=== PATIENT | female | born 1950 | race Caucasian/White ===

== ENCOUNTER 2019-05-24 00:53 | Outpatient (RCR) | payer MEDICARE, SELFPAY ==
[2019-05-10] MEDS: Normal Saline Flush 10 ML SYR IVP (08:51)
[2019-05-10 09:07] LABS: Abs Immature Grans 0.01 k/cumm (0.0-0.09); Absolute Basophil Count 0.04 k/cumm (0.0-0.2); Absolute Eosinophil Count 0.09 k/cumm (0.0-0.7); Absolute Lymphocyte Count 2.15 k/cumm (1.2-3.4); Absolute Monocyte Count 0.52 k/cumm (0.11-0.7); Basophils % 0.6; Eosinophils % 1.4; HCT 40.1 % (36.0-46.0); Immature Grans % 0.2; Lymphocytes % 34.6; Mean Corp. HGB Concentration 32.4 g/dL (32.0-36.0); Mean Corpuscular Hemoglobin 30.7 pg (27.0-33.0); Mean Corpuscular Volume 94.6 fL (80-95); Mean Platelet Volume 9.5 fL (8.0-11.0); Monocytes % 8.4; Neutrophils % 54.8; Platelet Count 305 x1000/uL (130-400); RBC 4.24 m/cumm (4.00-5.20); RBC Distribution Width 12.6 % (11.7-14.6); White Blood Cell Count 6.21 k/cumm (4.4-10.8)
[2019-05-10 09:21] LABS: ALT 23 U/L (12-78); AST 14 U/L (15-37); Albumin 4.3 g/dL (3.4-5.0); Alkaline Phosphatase 73 U/L (46-116); Anion Gap 10.4 mmol/L (3-11); BUN 11 mg/dL (7-18); Bilirubin, Total 0.5 mg/dL (0.2-1.0); CO2 24.6 mmol/L (21.0-32.0); CREATININE 0.72 mg/dL (0.55-1.02); Calcium 9.2 mg/dL (8.5-10.1); Chloride 105 mmol/L (98-107); Glucose 106 mg/dL (70-100); Sodium 140 mmol/L (136-145); Total Protein 7.7 g/dL (6.4-8.2)
[2019-05-24] MEDS: Normal Saline Flush 10 ML SYR IVP (09:56)
[2019-05-24 10:07] LABS: Abs Immature Grans 0.66 k/cumm (0.0-0.09); HCT 36.4 % (36.0-46.0); HGB 11.6 g/dL (12.0-15.5); Mean Corp. HGB Concentration 31.9 g/dL (32.0-36.0); Mean Corpuscular Hemoglobin 30.5 pg (27.0-33.0); Mean Corpuscular Volume 95.8 fL (80-95); Mean Platelet Volume 9.4 fL (8.0-11.0); Platelet Count 291 x1000/uL (130-400); RBC Distribution Width 12.9 % (11.7-14.6); White Blood Cell Count 16.08 k/cumm (4.4-10.8)
[2019-05-24 10:25] LABS: Absolute Basophil Count 0.16 k/cumm (0.0-0.2); Absolute Lymphocyte Count 1.61 k/cumm (1.2-3.4); Absolute Monocyte Count 1.13 k/cumm (0.11-0.7); Absolute Neutrophil Count 12.54 k/cumm (1.2-6.7); Diff Comment Manual Differential; Polychromasia Present
[2019-05-24 10:31] LABS: ALT 26 U/L (14-59); AST 15 U/L (15-37); Albumin 3.7 g/dL (3.4-5.0); Alkaline Phosphatase 111 U/L (46-116); Anion Gap 12.9 mmol/L (3-11); BUN 8 mg/dL (7-18); Bilirubin, Total 0.2 mg/dL (0.2-1.0); CO2 24.1 mmol/L (21.0-32.0); CREATININE 0.64 mg/dL (0.55-1.02); Calcium 8.9 mg/dL (8.5-10.1); Chloride 105 mmol/L (98-107); Glucose 137 mg/dL (70-100); Potassium 3.9 mmol/L (3.5-5.1); Sodium 142 mmol/L (136-145); Total Protein 7.2 g/dL (6.4-8.2)
== END 2019-05-26 23:59 | disposition home or self-care (01) ==
LOC: INF 00:53
PROVIDERS: PCP Family Medicine; Visit Provider Internal Medicine Hematology & Oncology
DX: C50.912 Malignant neoplasm of unspecified site of left female breast (principal); Z17.0 Estrogen receptor positive status [ER+]; Z45.2 Encounter for adjustment and management of vascular access device
CPT/HCPCS: 36591; 80053; 85025

== ENCOUNTER 2019-06-21 02:07 | Outpatient (RCR) | payer MEDICARE, SELFPAY ==
[2019-06-07] MEDS: Normal Saline Flush 10 ML SYR IVP (09:54)
[2019-06-07 10:04] LABS: HCT 33.4 % (36.0-46.0); HGB 10.6 g/dL (12.0-15.5); Mean Corp. HGB Concentration 31.7 g/dL (32.0-36.0); Mean Corpuscular Hemoglobin 30.1 pg (27.0-33.0); Mean Corpuscular Volume 94.9 fL (80-95); Mean Platelet Volume 8.8 fL (8.0-11.0); Platelet Count 260 x1000/uL (130-400); RBC 3.52 m/cumm (4.00-5.20); White Blood Cell Count 17.16 k/cumm (4.4-10.8)
[2019-06-07 10:14] LABS: ALT 26 U/L (14-59); AST 14 U/L (15-37); Albumin 3.8 g/dL (3.4-5.0); Alkaline Phosphatase 121 U/L (46-116); Anion Gap 10.4 mmol/L (3-11); BUN 7 mg/dL (7-18); Bilirubin, Total 0.2 mg/dL (0.2-1.0); CO2 24.6 mmol/L (21.0-32.0); CREATININE 0.67 mg/dL (0.55-1.02); Calcium 8.4 mg/dL (8.5-10.1); Chloride 107 mmol/L (98-107); Glucose 107 mg/dL (70-100); Potassium 4.1 mmol/L (3.5-5.1); Sodium 142 mmol/L (136-145); Total Protein 6.8 g/dL (6.4-8.2)
[2019-06-07 10:24] LABS: Absolute Lymphocyte Count 1.03 k/cumm (1.2-3.4); Absolute Monocyte Count 0.69 k/cumm (0.11-0.7); Absolute Neutrophil Count 15.27 k/cumm (1.2-6.7); Diff Comment Manual Differential; RBC Morphology Normal
[2019-06-21] MEDS: Normal Saline Flush 10 ML SYR IVP (10:05)
[2019-06-21 10:06] LABS: Abs Immature Grans 0.33 k/cumm (0.0-0.09); HCT 27.9 % (36.0-46.0); HGB 9.1 g/dL (12.0-15.5); Mean Corp. HGB Concentration 32.6 g/dL (32.0-36.0); Mean Corpuscular Hemoglobin 30.7 pg (27.0-33.0); Mean Corpuscular Volume 94.3 fL (80-95); Mean Platelet Volume 8.9 fL (8.0-11.0); Platelet Count 274 x1000/uL (130-400); RBC 2.96 m/cumm (4.00-5.20); White Blood Cell Count 12.21 k/cumm (4.4-10.8)
[2019-06-21 10:22] LABS: ALT 19 U/L (14-59); AST 11 U/L (15-37); Albumin 3.5 g/dL (3.4-5.0); Alkaline Phosphatase 101 U/L (46-116); Anion Gap 9.8 mmol/L (3-11); BUN 8 mg/dL (7-18); Bilirubin, Total 0.2 mg/dL (0.2-1.0); CO2 24.2 mmol/L (21.0-32.0); CREATININE 0.62 mg/dL (0.55-1.02); Calcium 8.6 mg/dL (8.5-10.1); Chloride 107 mmol/L (98-107); Glucose 124 mg/dL (70-100); Potassium 3.7 mmol/L (3.5-5.1); Sodium 141 mmol/L (136-145); Total Protein 6.5 g/dL (6.4-8.2)
[2019-06-21 10:36] LABS: Absolute Lymphocyte Count 0.49 k/cumm (1.2-3.4); Absolute Monocyte Count 0.73 k/cumm (0.11-0.7); Absolute Neutrophil Count 10.99 k/cumm (1.2-6.7); Anisocytosis 1+; Diff Comment RBC Morph Reviewed; Polychromasia Present
== END 2019-06-25 23:59 | disposition home or self-care (01) ==
LOC: INF 02:07
PROVIDERS: PCP Family Medicine; Visit Provider Internal Medicine Hematology & Oncology
DX: C50.912 Malignant neoplasm of unspecified site of left female breast (principal); Z17.0 Estrogen receptor positive status [ER+]; Z45.2 Encounter for adjustment and management of vascular access device
CPT/HCPCS: 36591; 80053; 85025

== ENCOUNTER 2019-07-19 01:15 | Outpatient (RCR) | payer MEDICARE, SELFPAY ==
[2019-07-19 08:58] LABS: Abs Immature Grans 0.04 k/cumm (0.0-0.09); Absolute Basophil Count 0.12 k/cumm (0.0-0.2); Absolute Eosinophil Count 0.16 k/cumm (0.0-0.7); Absolute Lymphocyte Count 0.58 k/cumm (1.2-3.4); Absolute Monocyte Count 0.52 k/cumm (0.11-0.7); Absolute Neutrophil Count 3.61 k/cumm (1.2-6.7); Basophils % 2.4; Eosinophils % 3.2; HCT 27.3 % (36.0-46.0); HGB 8.6 g/dL (12.0-15.5); Immature Grans % 0.8; Lymphocytes % 11.5; Mean Corp. HGB Concentration 31.5 g/dL (32.0-36.0); Mean Corpuscular Hemoglobin 30.7 pg (27.0-33.0); Mean Corpuscular Volume 97.5 fL (80-95); Mean Platelet Volume 8.6 fL (8.0-11.0); Monocytes % 10.3; Neutrophils % 71.8; Platelet Count 337 x1000/uL (130-400); RBC Distribution Width 18.1 % (11.7-14.6); White Blood Cell Count 5.03 k/cumm (4.4-10.8)
[2019-07-19 09:07] LABS: ALT 30 U/L (14-59); AST 16 U/L (15-37); Albumin 3.8 g/dL (3.4-5.0); Alkaline Phosphatase 72 U/L (46-116); Anion Gap 12.2 mmol/L (3-11); BUN 10 mg/dL (7-18); Bilirubin, Total 0.4 mg/dL (0.2-1.0); CO2 22.8 mmol/L (21.0-32.0); CREATININE 0.67 mg/dL (0.55-1.02); Calcium 9.1 mg/dL (8.5-10.1); Chloride 106 mmol/L (98-107); Glucose 126 mg/dL (70-100); Potassium 3.6 mmol/L (3.5-5.1); Sodium 141 mmol/L (136-145)
[2019-07-19] MEDS: Normal Saline Flush 10 ML SYR IVP (09:08)
== END 2019-07-26 23:59 | disposition home or self-care (01) ==
LOC: INF 01:15
PROVIDERS: PCP Family Medicine; Visit Provider Internal Medicine Hematology & Oncology
DX: C50.912 Malignant neoplasm of unspecified site of left female breast (principal); Z17.0 Estrogen receptor positive status [ER+]; Z45.2 Encounter for adjustment and management of vascular access device
CPT/HCPCS: 36591; 80053; 85025

== ENCOUNTER 2019-07-26 01:54 | Outpatient (RCR) | payer MEDICARE, SELFPAY ==
[2019-07-05] MEDS: Normal Saline Flush 10 ML SYR IVP (10:22)
[2019-07-05 10:40] LABS: Abs Immature Grans 0.45 k/cumm (0.0-0.09); HCT 25.3 % (36.0-46.0); HGB 7.9 g/dL (12.0-15.5); Mean Corp. HGB Concentration 31.2 g/dL (32.0-36.0); Mean Corpuscular Volume 96.2 fL (80-95); Mean Platelet Volume 8.7 fL (8.0-11.0); Platelet Count 292 x1000/uL (130-400); RBC 2.63 m/cumm (4.00-5.20); RBC Distribution Width 16.1 % (11.7-14.6); White Blood Cell Count 18.22 k/cumm (4.4-10.8)
[2019-07-05 10:47] LABS: ALT 14 U/L (14-59); AST 13 U/L (15-37); Albumin 3.5 g/dL (3.4-5.0); Alkaline Phosphatase 124 U/L (46-116); Anion Gap 10.5 mmol/L (3-11); BUN 7 mg/dL (7-18); Bilirubin, Total 0.2 mg/dL (0.2-1.0); CO2 24.5 mmol/L (21.0-32.0); CREATININE 0.61 mg/dL (0.55-1.02); Calcium 8.6 mg/dL (8.5-10.1); Chloride 108 mmol/L (98-107); Glucose 107 mg/dL (70-100); Potassium 3.8 mmol/L (3.5-5.1); Sodium 143 mmol/L (136-145); Total Protein 6.5 g/dL (6.4-8.2)
[2019-07-05 10:58] LABS: Absolute Lymphocyte Count 1.46 k/cumm (1.2-3.4); Absolute Monocyte Count 1.82 k/cumm (0.11-0.7); Absolute Neutrophil Count 14.58 k/cumm (1.2-6.7); Atypical Lymphocytes % 1
[2019-07-05 10:59] LABS: Anisocytosis 2+; Diff Comment Manual Differential
[2019-07-12] MEDS: Normal Saline Flush 10 ML SYR IVP (09:14)
[2019-07-12 09:32] LABS: Abs Immature Grans 0.04 k/cumm (0.0-0.09); Absolute Basophil Count 0.06 k/cumm (0.0-0.2); Absolute Eosinophil Count 0.01 k/cumm (0.0-0.7); Absolute Monocyte Count 0.68 k/cumm (0.11-0.7); Basophils % 1.1; Eosinophils % 0.2; HCT 26.8 % (36.0-46.0); HGB 8.5 g/dL (12.0-15.5); Immature Grans % 0.7; Lymphocytes % 10.9; Mean Corp. HGB Concentration 31.7 g/dL (32.0-36.0); Mean Corpuscular Volume 94.7 fL (80-95); Mean Platelet Volume 8.6 fL (8.0-11.0); Monocytes % 12.4; Neutrophils % 74.7; Platelet Count 413 x1000/uL (130-400); RBC 2.83 m/cumm (4.00-5.20); RBC Distribution Width 16.8 % (11.7-14.6); White Blood Cell Count 5.49 k/cumm (4.4-10.8)
[2019-07-12 09:42] LABS: ALT 22 U/L (14-59); AST 16 U/L (15-37); Albumin 3.8 g/dL (3.4-5.0); Alkaline Phosphatase 82 U/L (46-116); Anion Gap 12.1 mmol/L (3-11); BUN 9 mg/dL (7-18); Bilirubin, Total 0.4 mg/dL (0.2-1.0); CO2 22.9 mmol/L (21.0-32.0); CREATININE 0.73 mg/dL (0.55-1.02); Calcium 9.1 mg/dL (8.5-10.1); Chloride 107 mmol/L (98-107); Glucose 140 mg/dL (70-100); Potassium 3.5 mmol/L (3.5-5.1); Sodium 142 mmol/L (136-145); Total Protein 7.1 g/dL (6.4-8.2)
[2019-07-26] MEDS: Normal Saline Flush 10 ML SYR IVP (08:52)
[2019-07-26 09:14] LABS: ALT 29 U/L (14-59); AST 16 U/L (15-37); Albumin 3.6 g/dL (3.4-5.0); Alkaline Phosphatase 64 U/L (46-116); BUN 8 mg/dL (7-18); Bilirubin, Total 0.4 mg/dL (0.2-1.0); CREATININE 0.67 mg/dL (0.55-1.02); Calcium 9.1 mg/dL (8.5-10.1); Chloride 107 mmol/L (98-107); Glucose 110 mg/dL (70-100); Sodium 141 mmol/L (136-145); Total Protein 6.8 g/dL (6.4-8.2)
[2019-07-26 09:16] LABS: Abs Immature Grans 0.05 k/cumm (0.0-0.09); Absolute Basophil Count 0.06 k/cumm (0.0-0.2); Absolute Eosinophil Count 0.29 k/cumm (0.0-0.7); Absolute Lymphocyte Count 0.68 k/cumm (1.2-3.4); Absolute Monocyte Count 0.49 k/cumm (0.11-0.7); Absolute Neutrophil Count 3.45 k/cumm (1.2-6.7); Basophils % 1.2; Eosinophils % 5.8; HCT 28.5 % (36.0-46.0); Lymphocytes % 13.5; Mean Corp. HGB Concentration 31.6 g/dL (32.0-36.0); Mean Corpuscular Hemoglobin 31.6 pg (27.0-33.0); Mean Platelet Volume 8.6 fL (8.0-11.0); Monocytes % 9.8; Neutrophils % 68.7; Platelet Count 377 x1000/uL (130-400); RBC 2.85 m/cumm (4.00-5.20); RBC Distribution Width 18.6 % (11.7-14.6); White Blood Cell Count 5.02 k/cumm (4.4-10.8)
== END 2019-07-26 23:59 | disposition home or self-care (01) ==
LOC: INF 01:54
PROVIDERS: PCP Family Medicine; Visit Provider Internal Medicine Hematology & Oncology
DX: C50.912 Malignant neoplasm of unspecified site of left female breast (principal); Z17.0 Estrogen receptor positive status [ER+]; Z45.2 Encounter for adjustment and management of vascular access device
CPT/HCPCS: 36591; 80053; 86900; 86901; 85025

== ENCOUNTER 2019-08-24 02:03 | Outpatient (RCR) | payer MEDICARE, SELFPAY ==
[2019-08-02 10:03] LABS: Abs Immature Grans 0.03 k/cumm (0.0-0.09); Absolute Basophil Count 0.08 k/cumm (0.0-0.2); Absolute Eosinophil Count 0.17 k/cumm (0.0-0.7); Absolute Lymphocyte Count 0.66 k/cumm (1.2-3.4); Absolute Monocyte Count 0.45 k/cumm (0.11-0.7); Absolute Neutrophil Count 4.48 k/cumm (1.2-6.7); Basophils % 1.4; Eosinophils % 2.9; HCT 28.1 % (36.0-46.0); HGB 8.9 g/dL (12.0-15.5); Immature Grans % 0.5; Lymphocytes % 11.2; Mean Corp. HGB Concentration 31.7 g/dL (32.0-36.0); Mean Corpuscular Volume 101.1 fL (80-95); Mean Platelet Volume 8.3 fL (8.0-11.0); Monocytes % 7.7; Neutrophils % 76.3; Platelet Count 322 x1000/uL (130-400); RBC 2.78 m/cumm (4.00-5.20); RBC Distribution Width 17.1 % (11.7-14.6); White Blood Cell Count 5.87 k/cumm (4.4-10.8)
[2019-08-02 10:18] LABS: ALT 32 U/L (14-59); AST 19 U/L (15-37); Albumin 3.8 g/dL (3.4-5.0); Alkaline Phosphatase 72 U/L (46-116); Anion Gap 10.6 mmol/L (3-11); BUN 14 mg/dL (7-18); Bilirubin, Total 0.3 mg/dL (0.2-1.0); CO2 24.4 mmol/L (21.0-32.0); CREATININE 0.69 mg/dL (0.55-1.02); Calcium 8.8 mg/dL (8.5-10.1); Chloride 107 mmol/L (98-107); Glucose 123 mg/dL (70-100); Potassium 3.6 mmol/L (3.5-5.1); Sodium 142 mmol/L (136-145)
[2019-08-02] MEDS: Normal Saline Flush 10 ML SYR IVP (11:06)
[2019-08-09 09:18] LABS: Abs Immature Grans 0.03 k/cumm (0.0-0.09); Absolute Basophil Count 0.06 k/cumm (0.0-0.2); Absolute Eosinophil Count 0.12 k/cumm (0.0-0.7); Absolute Lymphocyte Count 0.76 k/cumm (1.2-3.4); Absolute Monocyte Count 0.31 k/cumm (0.11-0.7); Absolute Neutrophil Count 2.61 k/cumm (1.2-6.7); Basophils % 1.5; Eosinophils % 3.1; HCT 29.2 % (36.0-46.0); Immature Grans % 0.8; Lymphocytes % 19.5; Mean Corp. HGB Concentration 30.8 g/dL (32.0-36.0); Mean Corpuscular Hemoglobin 31.5 pg (27.0-33.0); Mean Corpuscular Volume 102.1 fL (80-95); Mean Platelet Volume 8.7 fL (8.0-11.0); Neutrophils % 67.1; Platelet Count 322 x1000/uL (130-400); RBC 2.86 m/cumm (4.00-5.20); RBC Distribution Width 16.4 % (11.7-14.6); White Blood Cell Count 3.89 k/cumm (4.4-10.8)
[2019-08-09 09:35] LABS: ALT 26 U/L (14-59); AST 18 U/L (15-37); Albumin 3.9 g/dL (3.4-5.0); Alkaline Phosphatase 64 U/L (46-116); Anion Gap 10.7 mmol/L (3-11); BUN 10 mg/dL (7-18); Bilirubin, Total 0.4 mg/dL (0.2-1.0); CO2 24.3 mmol/L (21.0-32.0); CREATININE 0.62 mg/dL (0.55-1.02); Calcium 9.1 mg/dL (8.5-10.1); Chloride 106 mmol/L (98-107); Glucose 101 mg/dL (70-100); Potassium 3.9 mmol/L (3.5-5.1); Sodium 141 mmol/L (136-145); Total Protein 6.9 g/dL (6.4-8.2)
[2019-08-09] MEDS: Normal Saline Flush 10 ML SYR IVP (09:39)
[2019-08-09 09:48] LABS: Anisocytosis 1+; Diff Comment RBC Morph Reviewed; Hypochromasia 1+; Macrocytosis 1+; Microcytosis 1+; Poikilocytes 1+; Polychromasia Present
[2019-08-16] MEDS: Normal Saline Flush 10 ML SYR IVP (09:18)
[2019-08-16 09:23] LABS: Abs Immature Grans 0.03 k/cumm (0.0-0.09); Absolute Basophil Count 0.04 k/cumm (0.0-0.2); Absolute Lymphocyte Count 0.69 k/cumm (1.2-3.4); Absolute Monocyte Count 0.34 k/cumm (0.11-0.7); Basophils % 1.1; Eosinophils % 2.6; HCT 31.7 % (36.0-46.0); Immature Grans % 0.8; Lymphocytes % 18.2; Mean Corp. HGB Concentration 31.5 g/dL (32.0-36.0); Mean Corpuscular Hemoglobin 32.4 pg (27.0-33.0); Mean Corpuscular Volume 102.6 fL (80-95); Mean Platelet Volume 8.5 fL (8.0-11.0); Monocytes % 8.9; Neutrophils % 68.4; Platelet Count 346 x1000/uL (130-400); RBC 3.09 m/cumm (4.00-5.20); RBC Distribution Width 15.8 % (11.7-14.6)
[2019-08-16 09:42] LABS: ALT 25 U/L (14-59); AST 12 U/L (15-37); Albumin 3.6 g/dL (3.4-5.0); Alkaline Phosphatase 58 U/L (46-116); Anion Gap 8.7 mmol/L (3-11); BUN 11 mg/dL (7-18); Bilirubin, Total 0.4 mg/dL (0.2-1.0); CO2 25.3 mmol/L (21.0-32.0); CREATININE 0.63 mg/dL (0.55-1.02); Calcium 9.1 mg/dL (8.5-10.1); Chloride 105 mmol/L (98-107); Glucose 104 mg/dL (74-106); Potassium 3.9 mmol/L (3.5-5.1); Sodium 139 mmol/L (136-145); Total Protein 6.6 g/dL (6.4-8.2)
[2019-08-24 09:33] LABS: Abs Immature Grans 0.01 k/cumm (0.0-0.09); Absolute Basophil Count 0.06 k/cumm (0.0-0.2); Absolute Eosinophil Count 0.08 k/cumm (0.0-0.7); Absolute Lymphocyte Count 0.78 k/cumm (1.2-3.4); Absolute Monocyte Count 0.56 k/cumm (0.11-0.7); Absolute Neutrophil Count 2.78 k/cumm (1.2-6.7); Basophils % 1.4; Eosinophils % 1.9; HCT 29.4 % (36.0-46.0); HGB 9.1 g/dL (12.0-15.5); Immature Grans % 0.2; Lymphocytes % 18.3; Mean Corpuscular Hemoglobin 32.3 pg (27.0-33.0); Mean Corpuscular Volume 104.3 fL (80-95); Mean Platelet Volume 8.8 fL (8.0-11.0); Monocytes % 13.1; Neutrophils % 65.1; Platelet Count 298 x1000/uL (130-400); RBC 2.82 m/cumm (4.00-5.20); RBC Distribution Width 14.8 % (11.7-14.6); White Blood Cell Count 4.27 k/cumm (4.4-10.8)
[2019-08-24 10:03] LABS: ALT 26 U/L (14-59); AST 17 U/L (15-37); Albumin 3.9 g/dL (3.4-5.0); Alkaline Phosphatase 64 U/L (46-116); Anion Gap 11.1 mmol/L (3-11); BUN 10 mg/dL (7-18); Bilirubin, Total 0.4 mg/dL (0.2-1.0); CO2 23.9 mmol/L (21.0-32.0); CREATININE 0.68 mg/dL (0.55-1.02); Calcium 8.8 mg/dL (8.5-10.1); Chloride 106 mmol/L (98-107); Glucose 99 mg/dL (74-106); Potassium 3.8 mmol/L (3.5-5.1); Sodium 141 mmol/L (136-145); Total Protein 6.8 g/dL (6.4-8.2)
[2019-08-24] MEDS: Normal Saline Flush 10 ML SYR IVP (11:40)
== END 2019-08-25 23:59 | disposition home or self-care (01) ==
LOC: INF 02:03
PROVIDERS: PCP Family Medicine; Visit Provider Internal Medicine Hematology & Oncology
DX: C50.912 Malignant neoplasm of unspecified site of left female breast (principal); Z17.0 Estrogen receptor positive status [ER+]; Z45.2 Encounter for adjustment and management of vascular access device
CPT/HCPCS: 36591; 80053; 85025

== ENCOUNTER 2019-09-20 00:40 | Outpatient (RCR) | payer MEDICARE, SELFPAY ==
[2019-08-30] MEDS: Normal Saline Flush 10 ML SYR IVP (09:25)
[2019-08-30 09:45] LABS: Abs Immature Grans 0.03 k/cumm (0.0-0.09); Absolute Basophil Count 0.04 k/cumm (0.0-0.2); Absolute Eosinophil Count 0.06 k/cumm (0.0-0.7); Absolute Lymphocyte Count 0.79 k/cumm (1.2-3.4); Absolute Monocyte Count 0.26 k/cumm (0.11-0.7); Absolute Neutrophil Count 3.45 k/cumm (1.2-6.7); Basophils % 0.9; Eosinophils % 1.3; HCT 34.5 % (36.0-46.0); HGB 10.9 g/dL (12.0-15.5); Immature Grans % 0.6; Lymphocytes % 17.1; Mean Corp. HGB Concentration 31.6 g/dL (32.0-36.0); Mean Corpuscular Hemoglobin 32.6 pg (27.0-33.0); Mean Corpuscular Volume 103.3 fL (80-95); Mean Platelet Volume 8.8 fL (8.0-11.0); Monocytes % 5.6; Neutrophils % 74.5; Platelet Count 335 x1000/uL (130-400); RBC 3.34 m/cumm (4.00-5.20); RBC Distribution Width 14.1 % (11.7-14.6); White Blood Cell Count 4.63 k/cumm (4.4-10.8)
[2019-08-30 10:01] LABS: ALT 22 U/L (14-59); AST 13 U/L (15-37); Albumin 3.9 g/dL (3.4-5.0); Alkaline Phosphatase 66 U/L (46-116); BUN 11 mg/dL (7-18); Bilirubin, Total 0.3 mg/dL (0.2-1.0); CREATININE 0.66 mg/dL (0.55-1.02); Calcium 9.3 mg/dL (8.5-10.1); Chloride 106 mmol/L (98-107); Glucose 122 mg/dL (74-106); Sodium 140 mmol/L (136-145); Total Protein 7.1 g/dL (6.4-8.2)
[2019-09-06] MEDS: Normal Saline Flush 10 ML SYR IVP (08:50)
[2019-09-06 09:15] LABS: Abs Immature Grans 0.02 k/cumm (0.0-0.09); Absolute Basophil Count 0.06 k/cumm (0.0-0.2); Absolute Eosinophil Count 0.08 k/cumm (0.0-0.7); Absolute Lymphocyte Count 1.14 k/cumm (1.2-3.4); Absolute Monocyte Count 0.42 k/cumm (0.11-0.7); Absolute Neutrophil Count 2.44 k/cumm (1.2-6.7); Basophils % 1.4; Eosinophils % 1.9; HCT 32.5 % (36.0-46.0); Immature Grans % 0.5; Lymphocytes % 27.4; Mean Corp. HGB Concentration 30.8 g/dL (32.0-36.0); Mean Corpuscular Hemoglobin 31.7 pg (27.0-33.0); Mean Corpuscular Volume 103.2 fL (80-95); Mean Platelet Volume 8.6 fL (8.0-11.0); Monocytes % 10.1; Neutrophils % 58.7; Platelet Count 357 x1000/uL (130-400); RBC 3.15 m/cumm (4.00-5.20); RBC Distribution Width 14.3 % (11.7-14.6); White Blood Cell Count 4.16 k/cumm (4.4-10.8)
[2019-09-06 09:50] LABS: ALT 27 U/L (14-59); AST 16 U/L (15-37); Albumin 3.8 g/dL (3.4-5.0); Alkaline Phosphatase 54 U/L (46-116); Anion Gap 10.8 mmol/L (3-11); BUN 12 mg/dL (7-18); Bilirubin, Total 0.3 mg/dL (0.2-1.0); CO2 24.2 mmol/L (21.0-32.0); CREATININE 0.71 mg/dL (0.55-1.02); Calcium 8.9 mg/dL (8.5-10.1); Chloride 106 mmol/L (98-107); Glucose 110 mg/dL (74-106); Potassium 3.6 mmol/L (3.5-5.1); Sodium 141 mmol/L (136-145); Total Protein 6.7 g/dL (6.4-8.2)
[2019-09-13 09:43] LABS: Abs Immature Grans 0.04 k/cumm (0.0-0.09); Absolute Basophil Count 0.05 k/cumm (0.0-0.2); Absolute Eosinophil Count 0.04 k/cumm (0.0-0.7); Absolute Lymphocyte Count 0.82 k/cumm (1.2-3.4); Absolute Neutrophil Count 3.43 k/cumm (1.2-6.7); Eosinophils % 0.8; HCT 34.1 % (36.0-46.0); HGB 10.7 g/dL (12.0-15.5); Immature Grans % 0.8; Lymphocytes % 16.5; Mean Corp. HGB Concentration 31.4 g/dL (32.0-36.0); Mean Corpuscular Hemoglobin 32.3 pg (27.0-33.0); Neutrophils % 68.9; Platelet Count 359 x1000/uL (130-400); RBC 3.31 m/cumm (4.00-5.20); RBC Distribution Width 14.6 % (11.7-14.6); White Blood Cell Count 4.98 k/cumm (4.4-10.8)
[2019-09-13] MEDS: Normal Saline Flush 10 ML SYR IVP (09:51)
[2019-09-13 09:55] LABS: ALT 23 U/L (14-59); AST 13 U/L (15-37); Albumin 3.6 g/dL (3.4-5.0); Alkaline Phosphatase 56 U/L (46-116); Anion Gap 11.7 mmol/L (3-11); BUN 11 mg/dL (7-18); Bilirubin, Total 0.3 mg/dL (0.2-1.0); CO2 24.3 mmol/L (21.0-32.0); CREATININE 0.65 mg/dL (0.55-1.02); Calcium 8.7 mg/dL (8.5-10.1); Chloride 106 mmol/L (98-107); Glucose 123 mg/dL (74-106); Potassium 3.8 mmol/L (3.5-5.1); Sodium 142 mmol/L (136-145); Total Protein 6.3 g/dL (6.4-8.2)
[2019-09-20 10:00] LABS: Abs Immature Grans 0.02 k/cumm (0.0-0.09); Absolute Basophil Count 0.05 k/cumm (0.0-0.2); Absolute Eosinophil Count 0.06 k/cumm (0.0-0.7); Absolute Lymphocyte Count 0.76 k/cumm (1.2-3.4); Absolute Monocyte Count 0.39 k/cumm (0.11-0.7); Absolute Neutrophil Count 2.26 k/cumm (1.2-6.7); Basophils % 1.4; Eosinophils % 1.7; HCT 33.1 % (36.0-46.0); HGB 10.6 g/dL (12.0-15.5); Immature Grans % 0.6; Lymphocytes % 21.5; Mean Corpuscular Hemoglobin 32.7 pg (27.0-33.0); Mean Corpuscular Volume 102.2 fL (80-95); Mean Platelet Volume 9.6 fL (8.0-11.0); Neutrophils % 63.8; Platelet Count 274 x1000/uL (130-400); RBC 3.24 m/cumm (4.00-5.20); RBC Distribution Width 14.4 % (11.7-14.6); White Blood Cell Count 3.54 k/cumm (4.4-10.8)
[2019-09-20 10:15] LABS: ALT 25 U/L (14-59); AST 14 U/L (15-37); Albumin 3.8 g/dL (3.4-5.0); Alkaline Phosphatase 61 U/L (46-116); Anion Gap 11.1 mmol/L (3-11); BUN 9 mg/dL (7-18); Bilirubin, Total 0.4 mg/dL (0.2-1.0); CO2 23.9 mmol/L (21.0-32.0); CREATININE 0.67 mg/dL (0.55-1.02); Calcium 8.7 mg/dL (8.5-10.1); Chloride 106 mmol/L (98-107); Glucose 112 mg/dL (74-106); Potassium 3.7 mmol/L (3.5-5.1); Sodium 141 mmol/L (136-145); Total Protein 6.5 g/dL (6.4-8.2)
[2019-09-20] MEDS: Normal Saline Flush 10 ML SYR IVP (10:52)
== END 2019-09-25 23:59 | disposition home or self-care (01) ==
LOC: INF 00:40
PROVIDERS: PCP Family Medicine; Visit Provider Internal Medicine Hematology & Oncology
DX: C50.912 Malignant neoplasm of unspecified site of left female breast (principal); Z17.0 Estrogen receptor positive status [ER+]; Z45.2 Encounter for adjustment and management of vascular access device
CPT/HCPCS: 36591; 80053; 85025

== ENCOUNTER 2019-10-18 11:06 | Outpatient (RCR) | payer MEDICARE, SELFPAY ==
[2019-10-18] MEDS: Heparin 500 UNITS/5 ML SYRINGE IVP (11:11)
[2019-10-18] MEDS: Normal Saline Flush 10 ML SYR IVP (11:11)
== END 2019-10-26 23:59 | disposition home or self-care (01) ==
LOC: INF 11:06
PROVIDERS: PCP Family Medicine; Visit Provider Internal Medicine Hematology & Oncology
DX: Z45.2 Encounter for adjustment and management of vascular access device (principal)
CPT/HCPCS: 96523

== ENCOUNTER 2019-11-29 02:10 | Outpatient (RCR) | payer MEDICARE, SELFPAY ==
[2019-11-29] MEDS: Heparin 500 UNITS/5 ML SYRINGE IV (13:09)
[2019-11-29] MEDS: Normal Saline Flush 10 ML SYR IVP (13:09)
[2019-11-29 13:13] LABS: Abs Immature Grans 0.01 k/cumm (0.0-0.09); Absolute Basophil Count 0.05 k/cumm (0.0-0.2); Absolute Eosinophil Count 0.24 k/cumm (0.0-0.7); Absolute Lymphocyte Count 0.84 k/cumm (1.2-3.4); Absolute Monocyte Count 0.65 k/cumm (0.11-0.7); Absolute Neutrophil Count 3.55 k/cumm (1.2-6.7); Basophils % 0.9; Eosinophils % 4.5; HCT 37.5 % (36.0-46.0); Immature Grans % 0.2 %; Lymphocytes % 15.7; Mean Corpuscular Hemoglobin 31.1 pg (27.0-33.0); Mean Corpuscular Volume 97.2 fL (80-95); Mean Platelet Volume 8.5 fL (8.0-11.0); Monocytes % 12.2; Neutrophils % 66.5; Platelet Count 332 x1000/uL (130-400); RBC 3.86 m/cumm (4.00-5.20); RBC Distribution Width 12.9 % (11.7-14.6); White Blood Cell Count 5.34 k/cumm (4.4-10.8)
[2019-11-29 13:32] LABS: ALT 20 U/L (14-59); AST 15 U/L (15-37); Albumin 3.7 g/dL (3.4-5.0); Alkaline Phosphatase 84 U/L (46-116); Anion Gap 10.9 mmol/L (3-11); BUN 8 mg/dL (7-18); Bilirubin, Total 0.3 mg/dL (0.2-1.0); CO2 25.1 mmol/L (21.0-32.0); CREATININE 0.57 mg/dL (0.55-1.02); Chloride 106 mmol/L (98-107); Glucose 103 mg/dL (74-106); Potassium 3.9 mmol/L (3.5-5.1); Sodium 142 mmol/L (136-145)
== END 2019-12-25 23:59 | disposition home or self-care (01) ==
LOC: INF 02:10
PROVIDERS: PCP Family Medicine; Visit Provider Internal Medicine Hematology & Oncology
DX: C50.912 Malignant neoplasm of unspecified site of left female breast (principal); Z17.0 Estrogen receptor positive status [ER+]; Z45.2 Encounter for adjustment and management of vascular access device
CPT/HCPCS: 36591; 80053; 85025

== ENCOUNTER 2020-01-11 02:09 | Outpatient (RCR) | payer MEDICARE, SELFPAY ==
[2020-01-11] MEDS: Heparin 500 UNITS/5 ML SYRINGE IV (11:24)
[2020-01-11] MEDS: Normal Saline Flush 10 ML SYR IVP (11:24)
== END 2020-01-24 23:59 | disposition home or self-care (01) ==
LOC: INF 02:09
PROVIDERS: PCP Family Medicine; Visit Provider Internal Medicine Hematology & Oncology
DX: Z45.2 Encounter for adjustment and management of vascular access device (principal)
CPT/HCPCS: 96523

== ENCOUNTER → 2020-02-15 02:23 | Outpatient (CLI) | payer MEDICARE, SELFPAY ==
--- NOTE | 2020-02-15 10:15 | DI.DEXA_ITS ---
EXAM: XR DEXA BONE DENSITY W/WO GUILLAUME CLINICAL HISTORY: [employer]WORK INST[employer]ER CURRENT USE AROMATASE INHIBITORS, Z79.811, LT BREAST CA, C50, TECHNIQUE: COMPARISON: No exams were available for comparison FINDINGS: Lateral Spine Image: Unremarkable. No compression deformities identified. Left hip: Total T-Score: -2.3 Total Z-Score: -0.8 T- and Z-scores: Findings consistent with osteopenia. Lumbar Spine: Total T-Score: -2.4 Total Z-Score: -0.3 T- and Z-scores: Findings consistent with osteopenia. IMPRESSION: Osteopenia in the left hip and lumbar spine.
== END ==
PROVIDERS: PCP Family Medicine; Visit Provider Internal Medicine Hematology & Oncology
DX: M85.88 Other specified disorders of bone density and structure, other site (principal); Z79.811 Long term (current) use of aromatase inhibitors; Z85.3 Personal history of malignant neoplasm of breast; Z45.2 Encounter for adjustment and management of vascular access device
CPT/HCPCS: 77080; 96523

== ENCOUNTER 2020-02-15 04:34 | Outpatient (RCR) | payer MEDICARE, SELFPAY ==
[2020-02-15] MEDS: Heparin 500 UNITS/5 ML SYRINGE IV (10:42)
[2020-02-15] MEDS: Normal Saline Flush 10 ML SYR IVP (10:42)
== END 2020-02-24 23:59 | disposition home or self-care (01) ==
LOC: INF 04:34
PROVIDERS: PCP Family Medicine; Visit Provider Internal Medicine Hematology & Oncology
DX: Z45.2 Encounter for adjustment and management of vascular access device (principal)
CPT/HCPCS: 96523

== ENCOUNTER 2020-02-28 03:04 | Outpatient (RCR) | payer MEDICARE, SELFPAY | END 2020-03-25 23:59 | disposition home or self-care (01) | LOC: INF 03:04 | PROVIDERS: PCP Family Medicine; Visit Provider Internal Medicine Hematology & Oncology | DX: R69 Illness, unspecified (principal) ==

== ENCOUNTER 2020-06-05 03:03 | Outpatient (CLI) | payer MEDICARE, SELFPAY ==
[2020-06-05 12:35] LABS: Abs Immature Grans 0.03 10^3/uL (0.0-0.06); Absolute Basophil Count 0.05 10^3/uL (0.0-0.2); Absolute Eosinophil Count 0.08 10^3/uL (0.0-0.7); Absolute Lymphocyte Count 1.31 10^3/uL (1.2-3.4); Absolute Monocyte Count 0.51 10^3/uL (0.1-0.8); Absolute Neutrophil Count 4.68 10^3/uL (1.2-6.7); Basophils % 0.8; Eosinophils % 1.2; HGB 12.6 g/dL (11.2-15.7); Immature Grans % 0.5; Lymphocytes % 19.7; MCH 31.3 pg (27.0-33.0); MCHC 32.3 % (32.0-36.0); MPV 8.7 fL (8.0-11.0); Monocytes % 7.7; Neutrophils % 70.1; Nucleated RBC 0 %; Platelet Count 254 10^3/uL (130-400); RBC 4.02 10^6/uL (3.93-5.22); RDW 12.8 % (11.7-14.6); RDW-SD 46.4 fL; WBC 6.66 10^3/uL (4.4-10.8)
[2020-06-05 12:48] LABS: ALT 23 U/L (14-59); AST 15 U/L (15-37); Albumin 4.4 g/dL (3.4-5.0); Alkaline Phosphatase 69 U/L (46-116); BUN 13 mg/dL (7-18); Bilirubin, Total 0.5 mg/dL (0.2-1.0); CREATININE 0.72 mg/dL (0.55-1.02); Calcium 9.5 mg/dL (8.5-10.1); Chloride 103 mmol/L (98-107); Glucose 109 mg/dL (74-106); Sodium 137 mmol/L (136-145); Total Protein 7.7 g/dL (6.4-8.2)
== END 2020-06-05 03:23 ==
PROVIDERS: PCP Family Medicine; Visit Provider Internal Medicine Hematology & Oncology
DX: C50.912 Malignant neoplasm of unspecified site of left female breast (principal); Z17.0 Estrogen receptor positive status [ER+]
CPT/HCPCS: 36415; 80053; 85025

== ENCOUNTER 2020-12-09 02:50 | Outpatient (CLI) | payer MEDICARE, SELFPAY ==
[2020-12-09 12:26] LABS: Abs Immature Grans 0.02 10^3/uL (0.0-0.06); Absolute Basophil Count 0.06 10^3/uL (0.0-0.2); Absolute Eosinophil Count 0.18 10^3/uL (0.0-0.7); Absolute Lymphocyte Count 1.41 10^3/uL (1.2-3.4); Absolute Neutrophil Count 3.06 10^3/uL (1.2-6.7); Basophils % 1.1; Eosinophils % 3.4; HCT 36.8 % (36.0-46.0); HGB 11.9 g/dL (11.2-15.7); Immature Grans % 0.4; MCH 31.2 pg (27.0-33.0); MCHC 32.3 % (32.0-36.0); MCV 96.6 fL (80-95); MPV 9.3 fL (8.0-11.0); Monocytes % 9.6; Neutrophils % 58.5; Nucleated RBC 0 %; Platelet Count 237 10^3/uL (130-400); RBC 3.81 10^6/uL (3.93-5.22); RDW 12.8 % (11.7-14.6); RDW-SD 45.9 fL; WBC 5.23 10^3/uL (4.4-10.8)
[2020-12-09 13:39] LABS: ALT 22 U/L (14-59); AST 13 U/L (15-37); Albumin 3.9 g/dL (3.4-5.0); Alkaline Phosphatase 60 U/L (46-116); Anion Gap 9.7 mmol/L (3-11); BUN 11 mg/dL (7-18); Bilirubin, Total 0.5 mg/dL (0.2-1.0); CO2 25.3 mmol/L (21.0-32.0); CREATININE 0.7 mg/dL (0.55-1.02); Calcium 8.8 mg/dL (8.5-10.1); Chloride 107 mmol/L (98-107); Glucose 104 mg/dL (74-106); Potassium 4.5 mmol/L (3.5-5.1); Sodium 142 mmol/L (136-145); Total Protein 6.8 g/dL (6.4-8.2)
== END 2020-12-09 02:51 | disposition home or self-care (01) ==
LOC: LBO 02:50
PROVIDERS: PCP Family Medicine; Visit Provider Internal Medicine Hematology & Oncology
DX: C50.912 Malignant neoplasm of unspecified site of left female breast (principal); Z17.0 Estrogen receptor positive status [ER+]
CPT/HCPCS: 36415; 80053; 85025

== ENCOUNTER 2021-06-25 03:42 | Outpatient (RCR) | payer MEDICARE, SELFPAY ==
[2021-06-25 13:44] LABS: Abs Immature Grans 0.02 10^3/uL (0.0-0.06); Absolute Basophil Count 0.08 10^3/uL (0.0-0.2); Absolute Eosinophil Count 0.08 10^3/uL (0.0-0.7); Absolute Monocyte Count 0.56 10^3/uL (0.1-0.8); Absolute Neutrophil Count 4.15 10^3/uL (1.2-6.7); Basophils % 1.2; Eosinophils % 1.2; HCT 39.2 % (36.0-46.0); HGB 12.6 g/dL (11.2-15.7); Immature Grans % 0.3; Lymphocytes % 24.7; MCH 31.3 pg (27.0-33.0); MCHC 32.1 % (32.0-36.0); MCV 97.5 fL (80-95); MPV 9.4 fL (8.0-11.0); Monocytes % 8.6; Nucleated RBC 0 %; Platelet Count 273 10^3/uL (130-400); RBC 4.02 10^6/uL (3.93-5.22); RDW 12.3 % (11.7-14.6); RDW-SD 44.3 fL; WBC 6.49 10^3/uL (4.4-10.8)
[2021-06-25 14:02] LABS: ALT 25 U/L (14-59); AST 10 U/L (15-37); Albumin 4.4 g/dL (3.4-5.0); Alkaline Phosphatase 75 U/L (46-116); Anion Gap 12.2 mmol/L (3-11); BUN 7 mg/dL (7-18); Bilirubin, Total 0.4 mg/dL (0.2-1.0); CO2 23.8 mmol/L (21.0-32.0); CREATININE 0.7 mg/dL (0.55-1.02); Calcium 9.3 mg/dL (8.5-10.1); Chloride 105 mmol/L (98-107); Glucose 98 mg/dL (74-106); Sodium 141 mmol/L (136-145); Total Protein 7.8 g/dL (6.4-8.2)
== END 2021-06-25 23:59 | disposition home or self-care (01) ==
LOC: INF 03:42
PROVIDERS: PCP Family Medicine; Visit Provider Internal Medicine Hematology & Oncology
DX: C50.912 Malignant neoplasm of unspecified site of left female breast (principal); Z17.0 Estrogen receptor positive status [ER+]; M81.0 Age-related osteoporosis without current pathological fracture; Z79.811 Long term (current) use of aromatase inhibitors
CPT/HCPCS: 36415; 80053; 85025

== ENCOUNTER 2021-12-24 12:12 | Outpatient (CLI) | payer MEDICARE, SELFPAY ==
[2021-12-24 11:15] LABS: Abs Immature Grans 0.02 10^3/uL (0.0-0.06); Absolute Basophil Count 0.07 10^3/uL (0.0-0.2); Absolute Eosinophil Count 0.14 10^3/uL (0.0-0.7); Absolute Lymphocyte Count 1.37 10^3/uL (1.2-3.4); Absolute Monocyte Count 0.57 10^3/uL (0.1-0.8); Absolute Neutrophil Count 3.92 10^3/uL (1.2-6.7); Basophils % 1.1; Eosinophils % 2.3; HCT 39.4 % (36.0-46.0); HGB 12.3 g/dL (11.2-15.7); Immature Grans % 0.3; Lymphocytes % 22.5; MCH 30.9 pg (27.0-33.0); MCHC 31.2 % (32.0-36.0); MPV 8.9 fL (8.0-11.0); Monocytes % 9.4; Neutrophils % 64.4; Nucleated RBC 0 %; Platelet Count 239 10^3/uL (130-400); RBC 3.98 10^6/uL (3.93-5.22); RDW 12.3 % (11.7-14.6); RDW-SD 45.5 fL; WBC 6.09 10^3/uL (4.4-10.8)
[2021-12-24 11:38] LABS: ALT 27 U/L (14-59); AST 15 U/L (15-37); Albumin 4.2 g/dL (3.4-5.0); Alkaline Phosphatase 63 U/L (46-116); Anion Gap 11.4 mmol/L (3-11); BUN 14 mg/dL (7-18); Bilirubin, Total 0.5 mg/dL (0.2-1.0); CO2 22.6 mmol/L (21.0-32.0); CREATININE 0.7 mg/dL (0.55-1.02); Calcium 9.1 mg/dL (8.5-10.1); Chloride 107 mmol/L (98-107); Glucose 107 mg/dL (74-106); Potassium 4.1 mmol/L (3.5-5.1); Sodium 141 mmol/L (136-145); Total Protein 7.5 g/dL (6.4-8.2)
== END 2021-12-24 12:13 | disposition home or self-care (01) ==
PROVIDERS: PCP Family Medicine; Visit Provider Internal Medicine Hematology & Oncology
DX: C50.912 Malignant neoplasm of unspecified site of left female breast (principal); M81.0 Age-related osteoporosis without current pathological fracture; Z79.811 Long term (current) use of aromatase inhibitors
CPT/HCPCS: 36415; 80053; 85025

== ENCOUNTER 2022-06-24 04:12 | Outpatient (CLI) | payer MEDICARE, SELFPAY ==
[2022-06-24 09:24] LABS: Abs Immature Grans 0.11 10^3/uL (0.0-0.06); Absolute Basophil Count 0.02 10^3/uL (0.0-0.2); Absolute Lymphocyte Count 1.87 10^3/uL (1.2-3.4); Absolute Monocyte Count 0.85 10^3/uL (0.1-0.8); Absolute Neutrophil Count 8.61 10^3/uL (1.2-6.7); Basophils % 0.2; HCT 39.6 % (36.0-46.0); HGB 12.9 g/dL (11.2-15.7); Lymphocytes % 16.3; MCH 31.5 pg (27.0-33.0); MCHC 32.6 % (32.0-36.0); MCV 97 fL (80-95); MPV 9.3 fL (8.0-11.0); Monocytes % 7.4; Neutrophils % 75.1; Platelet Count 313 10^3/uL (130-400); RBC 4.09 10^6/uL (3.93-5.22); RDW 13.1 % (11.7-14.6); RDW-SD 46.4 fL; WBC 11.46 10^3/uL (4.4-10.8)
[2022-06-24 09:36] LABS: ALT 31 U/L (14-59); AST 17 U/L (15-37); Albumin 4.2 g/dL (3.4-5.0); Alkaline Phosphatase 66 U/L (46-116); Anion Gap 7.4 mmol/L (3-11); BUN 16 mg/dL (7-18); Bilirubin, Total 0.3 mg/dL (0.2-1.0); CO2 29.6 mmol/L (21.0-32.0); CREATININE 0.7 mg/dL (0.55-1.02); Calcium 9.9 mg/dL (8.5-10.1); Chloride 103 mmol/L (98-107); Estimated GFR 91.83 (mL/min/1.73m2); Glucose 114 mg/dL (74-106); Potassium 4.3 mmol/L (3.5-5.1); Sodium 140 mmol/L (136-145); Total Protein 7.7 g/dL (6.4-8.2)
== END 2022-06-24 04:13 | disposition home or self-care (01) ==
PROVIDERS: PCP Family Medicine; Visit Provider Internal Medicine Hematology & Oncology
DX: C50.912 Malignant neoplasm of unspecified site of left female breast (principal); M81.0 Age-related osteoporosis without current pathological fracture; Z17.0 Estrogen receptor positive status [ER+]; Z79.811 Long term (current) use of aromatase inhibitors
CPT/HCPCS: 36415; 80053; 85025

== ENCOUNTER 2023-06-21 10:25 | Outpatient (CLI) | payer MEDICARE, SELFPAY ==
[2023-06-16 09:18] LABS: Abs Immature Grans 0.02 10^3/uL (0.0-0.06); Absolute Basophil Count 0.07 10^3/uL (0.0-0.2); Absolute Eosinophil Count 0.23 10^3/uL (0.0-0.7); Absolute Lymphocyte Count 1.62 10^3/uL (1.2-3.4); Absolute Monocyte Count 0.49 10^3/uL (0.1-0.8); Absolute Neutrophil Count 3.12 10^3/uL (1.2-6.7); Basophils % 1.3; Eosinophils % 4.1; HGB 11.8 g/dL (11.2-15.7); Immature Grans % 0.4; Lymphocytes % 29.2; MCH 31.1 pg (27.0-33.0); MCHC 31.9 % (32.0-36.0); MCV 98 fL (80-95); Monocytes % 8.8; Neutrophils % 56.2; Platelet Count 235 10^3/uL (130-400); RBC 3.79 10^6/uL (3.93-5.22); RDW 12.9 % (11.7-14.6); RDW-SD 46.1 fL; WBC 5.55 10^3/uL (4.4-10.8)
[2023-06-16 09:41] LABS: ALT 28 U/L (14-59); AST 20 U/L (15-37); Albumin 3.8 g/dL (3.4-5.0); Alkaline Phosphatase 49 U/L (46-116); Anion Gap 9.1 mmol/L (3-11); BUN 12 mg/dL (7-18); Bilirubin, Total 0.4 mg/dL (0.2-1.0); CO2 25.9 mmol/L (21.0-32.0); CREATININE 0.8 mg/dL (0.55-1.02); Calcium 8.9 mg/dL (8.5-10.1); Chloride 106 mmol/L (98-107); Estimated GFR 77.75 (mL/min/1.73m2); Glucose 121 mg/dL (74-106); Potassium 3.8 mmol/L (3.5-5.1); Sodium 141 mmol/L (136-145); Total Protein 7.1 g/dL (6.4-8.2)
--- OUTSIDE RECORDS SUMMARY | 2023-06-21 10:29 | XMS_ITS | Continuity of Care Document ---
Author Name Unknown Organization [facility] Address [address] [place] [address] Care Team Providers Care Scrap Bunch Maker Name Role Phone Ray Navarro MD Primary Care Physician Encounter LTTL_AR FIN NBR [id number] Date(s): 08/25/22 - 08/25/[address] [address]- [place] Discharge Disposition: Home or Self Care Attending Physician: PETAR REY Admitting Physician: PETAR REY Assessment and Plan Future Scheduled Tests Radiology* BD Bone Density DEXA Axial Skeleton 07/28/22 Results Radiology Reports * Exam Date Time Procedure Performing Provider Status 08/25/22 10:33 AM BD Bone Density DEXA Axial Skeleton [place] Alexis; Guido (Verified) Notes: (BD Bone Density DEXA Axial Skeleton) 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 COMPARISON: 10/06/2016 FINDINGS: Average bone mineral density of the lumbar spine from L1-4 is 0.826 g per sq cm corresponding to a T-score of -2.0. Findings consistent with osteopenia. Increased fracture risk. 2.4% interval decrease in bone density in this region. Bone mineral density in the left femoral neck is 0.543 g per sq cm corresponding to a T-score of -2.8. Findings consistent with osteoporosis. High fracture risk. 8.6% interval decrease in bone density in this region. Bone mineral density involving the distal 1/3 of the right forearm is 0.530 g per sq cm corresponding to a T-score -2.7. Findings consistent with osteoporosis. High fracture risk. This region was not assessed on prior study. FRAX-10 year probability of fracture: None available IMPRESSION: Findings consistent with osteoporosis. High fracture risk. JOB #: [id number] Final Signed by: Zen Hawley MD Signed (Electronic Signature): 08/25/2022 10:42 am DXA Skeletal system.axial Views for bone density * Zen Hawley MD: VERIFY, VERIFY Event Display: Report EXAM DESCRIPTION: BD Bone Density DEXA Axial Skeleton 08/25/2022 INDICATION: LONGTERM USE OF AROMATASE(CURRENT) TECHNIQUE: Bone Densitometry (DEXA) was performed. COMPARISON: 10/06/2016 FINDINGS: Average bone mineral density of the lumbar spine from L1-4 is 0.826 g per sq cm corresponding to a T-score of -2.0. Findings consistent with osteopenia. Increased fracture risk. 2.4% interval decrease in bone density in this region. Bone mineral density in the left femoral neck is 0.543 g per sq cm corresponding to a T-score of -2.8. Findings consistent with osteoporosis. High fracture risk. 8.6% interval decrease in bone density in this region. Bone mineral density involving the distal 1/3 of the right forearm is 0.530 g per sq cm corresponding to a T-score -2.7. Findings consistent with osteoporosis. High fracture risk. This region was not assessed on prior study. FRAX-10 year probability of fracture: None available IMPRESSION: Findings consistent with osteoporosis. High fracture risk. JOB #: [id number] Final Signed by: Zen Hawley MD Signed (Electronic Signature): 08/25/2022 10:42 am Patient Care team information Personnel Name: Ray Navarro MD Address: Address: [address]
--- OUTSIDE RECORDS SUMMARY | 2023-06-21 10:29 | XMS_ITS | Continuity of Care Document ---
Author Name Unknown Organization [facility] Address [address] [place] [address] Care Team Providers Care Rn Staff Name Role Phone Ramon JAMES, Ray Saucedo Primary Care Physician Encounter LTTL_DE FIN NBR [id number] Date(s): 12/09/22 - 12/09/[address] [address] Discharge Disposition: Home or Self Care Attending Physician: PETAR REY Admitting Physician: PETAR REY Assessment and Plan Future Scheduled Tests Radiology* BD Bone Density DEXA Axial Skeleton 07/28/22 Results Laboratory List Name Date CBC w/ Diff 12/09/22 Comprehensive Metabolic Panel 12/09/22 Automated Diff 12/09/22 Most recent to oldest [Reference Range]: 1 WBC [4.8-10.8 K/mcL] 7.4 K/mcL (12/09/22 9:30 AM) RBC [4.20-5.40 Million/mcL] 4.10 Million /mcL *LOW* (12/09/22 9:30 AM) Neutro Auto [42.2-75.2 %] 64.8 % (12/09/22 9:30 AM) Lymph Auto [20.5-51.1 %] 23.8 % (12/09/22 9:30 AM) Tripp Auto [1.7-9.3 %] 8.0 % (12/09/22 9:30 AM) Basophil Auto [0.0-0.8 %] 1.0 % *HI* (12/09/22 9:30 AM) BUN [8-26 mg/dL] 17 mg/dL (12/09/22 9:30 AM) Glucose Level [74-106 mg/dL] 125 mg/dL *HI* (12/09/22 9:30 AM) Potassium Level [3.5-5.1 mmol/L] 4.1 mmo l/L (12/09/22 9:30 AM) Baso Absolute [0.0-0.2 K/mcL] 0.1 K/mcL (12/09/22 9:30 AM) MCV [81.0-99.0 fL] 97.6 fL (12/09/22 9:30 AM) AST [15-41 IntlUnit/L] 20 IntlUnit/L (12/09/22 9:30 AM) ALT [14-54 IntlUnit/L] 18 IntlUnit/L (12/09/22 9:30 AM) MCHC [32.0-36.0 g/dL] 32.5 g/dL (12/09/22:30 AM) Osmolality [275-295 mOsm/kg] 275 mOsm/kg (12/09/22 9:30 AM) Sodium Level [134-143 mmol/L] 136 mmol/L (12/09/22 9:30 AM) Lymph Absolute [1.2-3.4 K/mcL] 1.8 K/mcL (12/09/22 9:30 AM) Hct [37.0-47.0 %] 40.0 % (12/09/22:30 AM) Calcium Level [8.9-10.3 mg/dL] 9.9 mg/dL (12/09/22 9:30 AM) Tripp Absolute [0.1-0.6 K/mcL] 0.6 K/mcL (12/09/22 9:30 AM) Albumin Level [3.5-5.0 g/dL] 4.6 g/dL (12/09/22 9:30 AM) Protein Total [6.5-8.1 g/dL] 7.6 g/dL (12/09/22 9:30 AM) MCH [27.0-31.0 pg] 31.7 pg *HI* (12/09/22 9:30 AM) Neutro Absolute [1.4-6.5 K/mcL] 4.8 K/mc L (12/09/22 9:30 AM) Bilirubin Total [0.2-1.2 mg/dL] 0.7 mg/d L (12/09/22 9:30 AM) Hgb [12.0-16.0 g/dL] 13.0 g/dL (12/09/22 9:30 AM) Alk Phos [38-130 IntlUnit/L] 55 IntlUnit /L (12/09/22 9:30 AM) MPV [7.4-10.4 fL] 9.3 fL (12/09/22 9:30 AM) Platelets [130-400 K/mcL] 272 K/mcL (12/09/22 9:30 AM) CO2 [22-32 mmol/L] 23 mmol/L (12/09/22 9:30 AM) Eos Absolute [0.0-0.2 K/mcL] 0.2 K/mcL (12/09/22 9:30 AM) Chloride Level [98-111 mmol/L] 102 mmol/ L (12/09/22 9:30 AM) RDW-CV [11.5-14.5 %] 12.6 % (12/09/22 9:30 AM) A/G Ratio 1.5 *NA* (12/09/22 9:30 AM) BUN/Creat Ratio [8.0-20.0] 23.3 *HI* (12/09/22 9:30 AM) Globulin 3.0 *NA* (12/09/22 9:30 AM) Imm Gran Absolute 0.03 *NA* (12/09/22 9:30 AM) Imm Gran Auto [0.0-0.5 %] 0.4 % (12/09/22 9:30 AM) Creatinine Level [0.44-1.00 mg/dL] 0.73 mg/dL (12/09/22 9:30 AM) Anion Gap [3.0-12.0] 11.0 (12/09/22 9:30 AM) Eos, Auto [0.00-3.00 %] 2.00 % (12/09/22 9:30 AM) eGFR CKD-EPI [>=60 mL/min/1.73 m2] 87 mL /min/1.73 m2 (12/09/22 9:30 AM) Patient Care team information Care Team Personnel Name: Ramon JAMES, Ray Saucedo Position: Physician Member Role: Primary Care Physician Address: Address: [address] [place] [address]- [place] Care Team Related Persons Name: DAVID AC
== END 2023-06-21 10:26 | disposition home or self-care (01) ==
LOC: LBO 10:27
PROVIDERS: PCP Family Medicine; Visit Provider Internal Medicine Hematology & Oncology
DX: C50.912 Malignant neoplasm of unspecified site of left female breast (principal); Z17.0 Estrogen receptor positive status [ER+]
CPT/HCPCS: 36415; 80053; 85025

== ENCOUNTER 2023-12-15 05:38 | Outpatient (CLI) | payer MEDICARE, SELFPAY ==
[2023-12-15 13:01] LABS: Abs Immature Grans 0.04 10^3/uL (0.0-0.06); Absolute Basophil Count 0.06 10^3/uL (0.0-0.2); Absolute Eosinophil Count 0.15 10^3/uL (0.0-0.7); Absolute Lymphocyte Count 1.57 10^3/uL (1.2-3.4); Absolute Monocyte Count 0.54 10^3/uL (0.1-0.8); Absolute Neutrophil Count 4.74 10^3/uL (1.2-6.7); Basophils % 0.8; Eosinophils % 2.1; HCT 37.7 % (36.0-46.0); HGB 12.1 g/dL (11.2-15.7); Immature Grans % 0.6; Lymphocytes % 22.1; MCH 31.3 pg (27.0-33.0); MCHC 32.1 % (32.0-36.0); MCV 98 fL (80-95); Monocytes % 7.6; Neutrophils % 66.8; Platelet Count 220 10^3/uL (130-400); RBC 3.86 10^6/uL (3.93-5.22); RDW 13.1 % (11.7-14.6); RDW-SD 46.6 fL
[2023-12-15 13:18] LABS: ALT 20 U/L (14-59); AST 13 U/L (15-37); Albumin 3.9 g/dL (3.4-5.0); Alkaline Phosphatase 56 U/L (46-116); Anion Gap 11.2 mmol/L (3-11); BUN 14 mg/dL (7-18); Bilirubin, Total 0.3 mg/dL (0.2-1.0); CO2 24.8 mmol/L (21.0-32.0); CREATININE 0.8 mg/dL (0.55-1.02); Chloride 108 mmol/L (98-107); Estimated GFR 77.75 (mL/min/1.73m2); Glucose 113 mg/dL (74-106); Potassium 3.8 mmol/L (3.5-5.1); Sodium 144 mmol/L (136-145); Total Protein 7.2 g/dL (6.4-8.2)
== END 2023-12-15 05:39 | disposition home or self-care (01) ==
PROVIDERS: PCP Family Medicine; Visit Provider Nurse Practitioner Family
DX: C50.912 Malignant neoplasm of unspecified site of left female breast (principal)
CPT/HCPCS: 36415; 80053; 85025

== ENCOUNTER 2024-06-21 02:51 | Outpatient (CLI) | payer MEDICARE, SELFPAY ==
[2024-06-21 08:49] LABS: Abs Immature Grans 0.03 10^3/uL (0.0-0.06); Absolute Basophil Count 0.06 10^3/uL (0.0-0.2); Absolute Eosinophil Count 0.17 10^3/uL (0.0-0.7); Absolute Lymphocyte Count 1.62 10^3/uL (1.2-3.4); Absolute Monocyte Count 0.52 10^3/uL (0.1-0.8); Absolute Neutrophil Count 3.55 10^3/uL (1.2-6.7); Eosinophils % 2.9 %; HCT 36.8 % (36.0-46.0); HGB 11.7 g/dL (11.2-15.7); Immature Grans % 0.5 %; Lymphocytes % 27.2 %; MCH 31.3 pg (27.0-33.0); MCHC 31.8 % (32.0-36.0); MCV 98 fL (80-95); Monocytes % 8.7 %; Neutrophils % 59.7 %; Platelet Count 224 10^3/uL (130-400); RBC 3.74 10^6/uL (3.93-5.22); RDW 12.7 % (11.7-14.6); RDW-SD 45.8 fL; WBC 5.95 10^3/uL (4.4-10.8)
[2024-06-21 09:17] LABS: ALT 23 U/L (14-59); AST 15 U/L (15-37); Albumin 3.8 g/dL (3.4-5.0); Alkaline Phosphatase 45 U/L (46-116); Anion Gap 7.9 mmol/L (3-11); BUN 17 mg/dL (7-18); Bilirubin, Total 0.36 mg/dL (0.2-1.0); CO2 26.1 mmol/L (21.0-32.0); CREATININE 0.9 mg/dL (0.55-1.02); Calcium 9.3 mg/dL (8.5-10.1); Chloride 105 mmol/L (98-107); Estimated GFR 67.08 (mL/min/1.73m2); Glucose 116 mg/dL (74-106); Potassium 3.5 mmol/L (3.5-5.1); Sodium 139 mmol/L (136-145); Total Protein 7.2 g/dL (6.4-8.2)
== END 2024-06-21 02:52 | disposition home or self-care (01) ==
LOC: LBO 02:51
PROVIDERS: PCP Family Medicine; Visit Provider Internal Medicine Hematology & Oncology
DX: Z79.811 Long term (current) use of aromatase inhibitors (principal)
CPT/HCPCS: 36415; 80053; 85025

== ENCOUNTER 2024-12-26 03:11 | Outpatient (CLI) | payer OTHER, SELFPAY ==
[2024-12-26 08:49] LABS: Abs Immature Grans 0.03 10^3/uL (0.0-0.06); Absolute Basophil Count 0.08 10^3/uL (0.0-0.2); Absolute Eosinophil Count 0.12 10^3/uL (0.0-0.7); Absolute Lymphocyte Count 1.49 10^3/uL (1.2-3.4); Absolute Monocyte Count 0.45 10^3/uL (0.1-0.8); Absolute Neutrophil Count 5.04 10^3/uL (1.2-6.7); Basophils % 1.1 %; Eosinophils % 1.7 %; HCT 35.2 % (36.0-46.0); HGB 11.2 g/dL (11.2-15.7); Immature Grans % 0.4 %; Lymphocytes % 20.7 %; MCHC 31.8 % (32.0-36.0); MCV 98 fL (80-95); MPV 9.3 fL (8.0-11.0); Monocytes % 6.2 %; Neutrophils % 69.9 %; Platelet Count 261 10^3/uL (130-400); RBC 3.61 10^6/uL (3.93-5.22); RDW 12.4 % (11.7-14.6); RDW-SD 44.4 fL; WBC 7.21 10^3/uL (4.4-10.8)
[2024-12-26 09:25] LABS: ALT 27 U/L (14-59); AST 15 U/L (15-37); Albumin 4.1 g/dL (3.4-5.0); Alkaline Phosphatase 38 U/L (46-116); BUN 14 mg/dL (7-18); Bilirubin, Total 0.4 mg/dL (0.2-1.0); CREATININE 1.1 mg/dL (0.55-1.02); Calcium 9.4 mg/dL (8.5-10.1); Chloride 106 mmol/L (98-107); Estimated GFR 52.73 (mL/min/1.73m2); Glucose 119 mg/dL (74-106); Potassium 3.8 mmol/L (3.5-5.1); Sodium 143 mmol/L (136-145); Total Protein 7.6 g/dL (6.4-8.2)
== END 2024-12-26 03:12 | disposition home or self-care (01) ==
LOC: LBO 03:11
PROVIDERS: PCP Family Medicine; Visit Provider Nurse Practitioner Family
DX: C50.011 Malignant neoplasm of nipple and areola, right female breast (principal); M81.0 Age-related osteoporosis without current pathological fracture; Z79.811 Long term (current) use of aromatase inhibitors
CPT/HCPCS: 36415; 80053; 85025

== ENCOUNTER 2025-04-24 13:20 | Outpatient (CLI) | payer OTHER, SELFPAY ==
[2025-04-24 13:47] LABS: Abs Immature Grans 0.04 10^3/uL (0.0-0.06); HCT 31.9 % (36.0-46.0); HGB 10.7 g/dL (11.2-15.7); Immature Grans % 0.5 %; MCH 30.9 pg (27.0-33.0); MCHC 33.5 % (32.0-36.0); MCV 92 fL (80-95); MPV 9.9 fL (8.0-11.0); Platelet Count 247 10^3/uL (130-400); RBC 3.46 10^6/uL (3.93-5.22); RDW 13.3 % (11.7-14.6); RDW-SD 45.1 fL; WBC 7.32 10^3/uL (4.4-10.8)
[2025-04-24 14:07] LABS: ALT 23 U/L (14-59); AST 17 U/L (15-37); Albumin 4.1 g/dL (3.4-5.0); Alkaline Phosphatase 43 U/L (46-116); Anion Gap 12.1 mmol/L (3-11); BUN 22 mg/dL (7-18); Bilirubin, Total 0.4 mg/dL (0.2-1.0); CO2 22.9 mmol/L (21.0-32.0); Calcium 9.2 mg/dL (8.5-10.1); Chloride 103 mmol/L (98-107); Estimated GFR 58.75 (mL/min/1.73m2); Glucose 115 mg/dL (74-106); LDH 140 U/L (81-234); Potassium 3.8 mmol/L (3.5-5.1); Sodium 138 mmol/L (136-145); TSH 4.01 uIU/mL (0.36-3.74); Total Protein 7.4 g/dL (6.4-8.2)
== END 2025-04-24 13:21 | disposition home or self-care (01) ==
LOC: LBO 13:21
PROVIDERS: PCP Family Medicine; Visit Provider Internal Medicine Hematology & Oncology
DX: C43.9 Malignant melanoma of skin, unspecified (principal)
CPT/HCPCS: 36415; 80053; 83615; 84439; 84443; 85025

== ENCOUNTER 2025-05-15 03:12 | Outpatient (CLI) | payer OTHER, SELFPAY ==
[2025-05-15 11:05] LABS: Abs Immature Grans 0.03 10^3/uL (0.0-0.06); HCT 32.7 % (36.0-46.0); HGB 10.3 g/dL (11.2-15.7); Immature Grans % 0.4 %; MCH 30.0 pg (27.0-33.0); MCHC 31.5 % (32.0-36.0); MCV 95 fL (80-95); MPV 9.3 fL (8.0-11.0); Platelet Count 265 10^3/uL (130-400); RBC 3.43 10^6/uL (3.93-5.22); RDW 13.3 % (11.7-14.6); RDW-SD 46.5 fL; WBC 6.96 10^3/uL (4.4-10.8)
[2025-05-15 11:24] LABS: ALT 24 U/L (14-59); AST 15 U/L (15-37); Albumin 4.1 g/dL (3.4-5.0); Alkaline Phosphatase 40 U/L (46-116); Anion Gap 7.7 mmol/L (3-11); BUN 26 mg/dL (7-18); Bilirubin, Total 0.3 mg/dL (0.2-1.0); CO2 28.3 mmol/L (21.0-32.0); Calcium 9.2 mg/dL (8.5-10.1); Chloride 106 mmol/L (98-107); Creatine Kinase 52 U/L (26-192); Estimated GFR 66.67 (mL/min/1.73m2); Glucose 111 mg/dL (74-106); LDH 146 U/L (81-234); Potassium 3.7 mmol/L (3.5-5.1); Sodium 142 mmol/L (136-145); TSH 7.41 uIU/mL (0.36-3.74); Total Protein 7.4 g/dL (6.4-8.2)
[2025-05-17 11:53] LABS: Adrenocorticotropic Hormone, P 41 pg/mL
== END 2025-05-15 03:13 | disposition home or self-care (01) ==
LOC: LBO 03:13
PROVIDERS: PCP Family Medicine; Visit Provider Nurse Practitioner
DX: C43.9 Malignant melanoma of skin, unspecified (principal)
CPT/HCPCS: 36415; 80053; 82533; 82550; 82024; 83615; 84439; 84443; 85025

== ENCOUNTER 2025-06-05 04:29 | Outpatient (CLI) | payer OTHER, SELFPAY ==
[2025-06-05 08:17] LABS: Abs Immature Grans 0.03 10^3/uL (0.0-0.06); HCT 33.7 % (36.0-46.0); HGB 10.8 g/dL (11.2-15.7); Immature Grans % 0.4 %; MCH 30.7 pg (27.0-33.0); MCHC 32.0 % (32.0-36.0); MCV 96 fL (80-95); MPV 9.1 fL (8.0-11.0); Platelet Count 241 10^3/uL (130-400); RBC 3.52 10^6/uL (3.93-5.22); RDW 13.3 % (11.7-14.6); RDW-SD 47.1 fL; WBC 7.25 10^3/uL (4.4-10.8)
[2025-06-05 08:47] LABS: ALT 20 U/L (14-59); AST 12 U/L (15-37); Albumin 4.2 g/dL (3.4-5.0); Alkaline Phosphatase 43 U/L (46-116); Anion Gap 10.8 mmol/L (3-11); BUN 18 mg/dL (7-18); Bilirubin, Total 0.4 mg/dL (0.2-1.0); CO2 26.2 mmol/L (21.0-32.0); Calcium 9.3 mg/dL (8.5-10.1); Chloride 103 mmol/L (98-107); Estimated GFR 66.67 (mL/min/1.73m2); Glucose 119 mg/dL (74-106); Potassium 3.6 mmol/L (3.5-5.1); Sodium 140 mmol/L (136-145); T4 5.9 ug/dL (4.7-13.3); TSH 28.43 uIU/mL (0.36-3.74); Total Protein 7.6 g/dL (6.4-8.2)
[2025-06-05 10:19] LABS: Ferritin 340 ng/mL (8-252); Folate 8.3 ng/mL (8.6-20.0); Vitamin B12 444 pg/mL (193-986)
== END 2025-06-05 04:30 | disposition home or self-care (01) ==
LOC: LBO 04:29
PROVIDERS: PCP Family Medicine; Visit Provider Internal Medicine Hematology & Oncology
DX: C43.9 Malignant melanoma of skin, unspecified (principal); D64.9 Anemia, unspecified
CPT/HCPCS: 36415; 80053; 82668; 82607; 82728; 82746; 84436; 84443; 85025; 85045

== ENCOUNTER 2025-06-26 04:05 | Outpatient (CLI) | payer OTHER, SELFPAY ==
[2025-06-26 13:37] LABS: Abs Immature Grans 0.03 10^3/uL (0.0-0.06); HCT 32.4 % (36.0-46.0); HGB 10.3 g/dL (11.2-15.7); Immature Grans % 0.5 %; MCH 30.3 pg (27.0-33.0); MCHC 31.8 % (32.0-36.0); MCV 95 fL (80-95); MPV 9.0 fL (8.0-11.0); Platelet Count 247 10^3/uL (130-400); RBC 3.40 10^6/uL (3.93-5.22); RDW 13.1 % (11.7-14.6); RDW-SD 46.2 fL; WBC 6.65 10^3/uL (4.4-10.8)
[2025-06-26 14:05] LABS: ALT 20 U/L (14-59); AST 16 U/L (15-37); Albumin 4.1 g/dL (3.4-5.0); Alkaline Phosphatase 43 U/L (46-116); Anion Gap 10.5 mmol/L (3-11); BUN 19 mg/dL (7-18); Bilirubin, Total 0.3 mg/dL (0.2-1.0); CO2 25.5 mmol/L (21.0-32.0); Calcium 9.0 mg/dL (8.5-10.1); Chloride 103 mmol/L (98-107); Estimated GFR 58.75 (mL/min/1.73m2); Glucose 123 mg/dL (74-106); Potassium 3.7 mmol/L (3.5-5.1); Sodium 139 mmol/L (136-145); T4 9.6 ug/dL (4.7-13.3); TSH 12.98 uIU/mL (0.36-3.74); Total Protein 7.3 g/dL (6.4-8.2)
[2025-06-26 16:12] LABS: Magnesium 2.0 mg/dL (1.8-2.4)
== END 2025-06-26 04:06 | disposition home or self-care (01) ==
PROVIDERS: Nurse Practitioner Family; PCP Family Medicine; Visit Provider Internal Medicine Hematology & Oncology
DX: C43.9 Malignant melanoma of skin, unspecified (principal)
CPT/HCPCS: 36415; 80053; 83735; 84436; 84443; 85025

== ENCOUNTER 2025-07-17 01:36 | Outpatient (CLI) | payer OTHER, SELFPAY ==
[2025-07-17 12:41] LABS: Abs Immature Grans 0.02 10^3/uL (0.0-0.06); HCT 34.1 % (36.0-46.0); HGB 10.9 g/dL (11.2-15.7); Immature Grans % 0.3 %; MCH 30.7 pg (27.0-33.0); MCHC 32.0 % (32.0-36.0); MCV 96 fL (80-95); MPV 9.2 fL (8.0-11.0); Platelet Count 268 10^3/uL (130-400); RBC 3.55 10^6/uL (3.93-5.22); RDW 12.9 % (11.7-14.6); RDW-SD 45.7 fL; WBC 7.29 10^3/uL (4.4-10.8)
[2025-07-17 13:03] LABS: ALT 19 U/L (14-59); AST 13 U/L (15-37); Albumin 4.1 g/dL (3.4-5.0); Alkaline Phosphatase 45 U/L (46-116); Anion Gap 8.0 mmol/L (3-11); BUN 19 mg/dL (7-18); Bilirubin, Total 0.4 mg/dL (0.2-1.0); CO2 28.0 mmol/L (21.0-32.0); Calcium 9.3 mg/dL (8.5-10.1); Chloride 102 mmol/L (98-107); Estimated GFR 66.67 (mL/min/1.73m2); Glucose 112 mg/dL (74-106); Potassium 3.8 mmol/L (3.5-5.1); Sodium 138 mmol/L (136-145); T4 9.3 ug/dL (4.7-13.3); TSH 26.12 uIU/mL (0.36-3.74); Total Protein 7.7 g/dL (6.4-8.2)
== END 2025-07-17 01:37 | disposition home or self-care (01) ==
LOC: LBO 01:36
PROVIDERS: PCP Family Medicine; Visit Provider Internal Medicine Hematology & Oncology
DX: C43.9 Malignant melanoma of skin, unspecified (principal)
CPT/HCPCS: 36415; 80053; 84436; 84443; 85025

== ENCOUNTER 2025-08-28 12:05 | Outpatient (CLI) | payer OTHER, SELFPAY ==
[2025-08-28 12:27] LABS: Abs Immature Grans 0.03 10^3/uL (0.0-0.06); HCT 33.2 % (36.0-46.0); HGB 10.7 g/dL (11.2-15.7); Immature Grans % 0.4 %; MCH 30.6 pg (27.0-33.0); MCHC 32.2 % (32.0-36.0); MCV 95 fL (80-95); MPV 9.0 fL (8.0-11.0); Platelet Count 252 10^3/uL (130-400); RBC 3.50 10^6/uL (3.93-5.22); RDW 12.8 % (11.7-14.6); RDW-SD 44.5 fL; WBC 7.99 10^3/uL (4.4-10.8)
[2025-08-28 12:57] LABS: ALT 12 U/L (10-49); AST 18 U/L (<34); Albumin 4.3 g/dL (3.2-5.0); Alkaline Phosphatase 39 U/L (46-116); Anion Gap 9.3 mmol/L (3-11); BUN 21 mg/dL (9-23); Bilirubin, Total 0.40 mg/dL (0.2-1.2); CO2 25.7 mmol/L (20.0-31.0); Calcium 9.5 mg/dL (8.3-10.6); Chloride 105 mmol/L (98-107); Glucose 105 mg/dL (74-106); Potassium 4.0 mmol/L (3.5-5.1); Sodium 140 mmol/L (136-145); Total Protein 7.1 g/dL (5.7-8.2)
[2025-08-28 12:58] LABS: T4 10.0 ug/dL (4.5-10.9); TSH 10.34 uIU/mL (0.55-4.78)
== END 2025-08-28 12:06 | disposition home or self-care (01) ==
LOC: LBO 12:05
PROVIDERS: PCP Family Medicine; Visit Provider Internal Medicine Hematology & Oncology
DX: C43.9 Malignant melanoma of skin, unspecified (principal)
CPT/HCPCS: 36415; 80053; 84436; 84439; 84443; 85025

== ENCOUNTER 2025-09-17 12:18 | Outpatient (CLI) | payer OTHER, SELFPAY ==
[2025-09-17 12:14] LABS: Abs Immature Grans 0.04 10^3/uL (0.0-0.06); HCT 32.1 % (36.0-46.0); HGB 10.2 g/dL (11.2-15.7); Immature Grans % 0.4 %; MCH 30.3 pg (27.0-33.0); MCHC 31.8 % (32.0-36.0); MCV 95 fL (80-95); MPV 9.1 fL (8.0-11.0); Platelet Count 239 10^3/uL (130-400); RBC 3.37 10^6/uL (3.93-5.22); RDW 12.9 % (11.7-14.6); RDW-SD 44.7 fL; WBC 9.07 10^3/uL (4.4-10.8)
[2025-09-17 12:37] LABS: ALT 11 U/L (10-49); AST 17 U/L (<34); Albumin 4.3 g/dL (3.2-5.0); Alkaline Phosphatase 41 U/L (46-116); Anion Gap 9.6 mmol/L (3-11); BUN 21 mg/dL (9-23); Bilirubin, Total 0.4 mg/dL (0.2-1.2); CO2 25.4 mmol/L (20.0-31.0); Calcium 9.1 mg/dL (8.3-10.6); Chloride 108 mmol/L (98-107); Glucose 106 mg/dL (74-106); Potassium 4.1 mmol/L (3.5-5.1); Sodium 143 mmol/L (136-145); Total Protein 7.1 g/dL (5.7-8.2)
[2025-09-17 12:39] LABS: T4 9.7 ug/dL (4.5-10.9)
[2025-09-17 12:40] LABS: TSH 10.78 uIU/mL (0.55-4.78)
== END 2025-09-17 12:19 | disposition home or self-care (01) ==
LOC: LBO 12:19
PROVIDERS: PCP Family Medicine; Visit Provider Internal Medicine Hematology & Oncology
DX: C43.9 Malignant melanoma of skin, unspecified (principal)
CPT/HCPCS: 36415; 80053; 84436; 84443; 85025